=== PATIENT | female | born 1990 | race African-American/Black ===

== ENCOUNTER 2022-05-26 12:52 | Emergency (ER) | payer MEDICAID ==
[~2022-05-26] VITALS: Ht 165.1 cm; Wt 100.0 kg
[2022-05-26] MEDS ORDERED: MORPHINE SULFATE 4 MG/ML CPJ (NOT FOR IM USE) IV STA (13:58)
[2022-05-26] MEDS ORDERED: ONDANSETRON HCL 4MG/2ML INJ IV STA (13:58)
[2022-05-26] MEDS ORDERED: SODIUM CHLORIDE 0.9% 1,000 ML IV ONE (14:00)
[2022-05-26 15:04] LABS: BASOPHILS % 0.5 % (0.0-2.0); EOSINOPHILS % 1.4 % (0.0-5.0); HEMATOCRIT. 39.5 % (36.0-48.0); HEMOGLOBIN. 13.3 g/dL (12.0-16.0); MEAN CORPUSCULAR HEMOGLOBIN 29.7 pg (28.0-32.0); MEAN CORPUSCULAR VOLUME 88.5 fL (81.0-99.0); MEAN PLATELET VOLUME 7.4 fl (7.4-10.4); MONOCYTES % 6.5 % (2.0-8.0); NEUTROPHILS % 55.6 % (40.0-76.0); PLATELET 325 x1000/uL (130-400); RED BLOOD CELL COUNT 4.46 mill/uL (4.2-5.4)
[2022-05-26 15:10] LABS: CHLORIDE 107 mEq/L (98-107)
[2022-05-26 15:14] LABS: ETHANOL BLOOD 12 mg/dL
[2022-05-26 16:16] VITALS: BP 142/103
[2022-05-26] MEDS ORDERED: ALBU6.7H3 INH (17:24)
[2022-05-26] MEDS ORDERED: TOPUD MT (17:24)
[2022-05-26] MEDS ORDERED: ALBUTEROL 6.7GM HFA INHALER ORI ONE (17:30)
[2022-05-26] MEDS ORDERED: ALBUTEROL (0.083%) 2.5MG/3ML NEB HHN ONE (17:45)
== END 2022-05-26 18:35 | disposition home or self-care (01) ==
LOC: ER 12:52
DX: R07.89 Other chest pain (principal); R06.02 Shortness of breath; I10 Essential (primary) hypertension; J44.9 Chronic obstructive pulmonary disease, unspecified; Z87.19 Personal history of other diseases of the digestive system; Z87.891 Personal history of nicotine dependence
CPT/HCPCS: 36415; 71045; 80053; 80320; 83690; 83880; 84484; 85025; 93005; 94640; 96374; 96375; 99285; J2270; J2405; J7030; Z7610; G0480